=== PATIENT | male | born 2000 | race Caucasian/White ===

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

== ENCOUNTER 2021-01-29 02:24 | Emergency (ER) | payer OTHER ==
[~2021-01-29] VITALS: Ht 185.4 cm; Wt 68.0 kg
[2021-01-29 03:56] LABS: BASOPHILS ABSOLUTE AUTO 0.04 K/mm3 (0.00-0.23); BASOPHILS PERCENT AUTO 0 % (0-2); EOSINOPHILS PERCENT AUTO 0 % (0-6); Hematocrit 43.9 % (37.0-53.0); Hemoglobin 14.9 g/dL (13.5-17.5); IMMATURE GRAN ABSOLUTE AUTO 0.03 K/mm3 (0.00-0.10); IMMATURE GRAN PERCENT AUTO 0 % (0-1); LYMPHOCYTES ABSOLUTE AUTO 0.58 K/mm3 (0.84-5.20); LYMPHOCYTES PERCENT AUTO 5 % (21-46); MONOCYTES ABSOLUTE AUTO 0.82 K/mm3 (0.16-1.47); MONOCYTES PERCENT AUTO 7 % (4-13); Mean Corpuscular HGB 29.3 pg (26.0-34.0); Mean Corpuscular HGB Conc 33.9 g/dL (31.5-36.5); Mean Corpuscular Volume 86 fL (80-100); NEUTROPHILS ABSOLUTE AUTO 10.72 K/mm3 (1.96-9.15); NEUTROPHILS PERCENT AUTO 88 % (41-73); Platelet Count 206 K/mm3 (150-400); RDW Coefficient Variation 12.7 % (11.7-14.2); RDW Standard Deviation 39.9 fL (35.1-46.3); Red Blood Cell Count 5.08 M/mm3 (4.30-5.90); White Blood Cell Count 12.19 K/mm3 (4.00-11.30)
[2021-01-29 04:15] LABS: Alanine Aminotransfer (ALT/SGP 22 U/L (12-78); Albumin, Blood 4.4 g/dL (3.4-5.0); Albumin/Globulin Ratio 1.4 (0.8-1.8); Alk Phos 71 U/L (58-237); Anion Gap 8 mmol/L (6-16); Aspartate Aminotrans (AST/SGOT 21 U/L (12-37); Bilirubin, Total 0.7 mg/dL (0.1-1.0); Blood Urea Nitrogen 10 mg/dL (8-21); Bun/Creatinine Ratio 11.2 (12.0-20.0); CO2, Blood 25 mmol/L (21-32); Calcium, Blood 9.2 mg/dL (8.5-10.1); Chloride, Blood 105 mmol/L (98-108); Creatinine, Blood 0.89 mg/dL (0.60-1.20); Globulin, Blood 3.2 g/dL (2.2-4.0); Glomerular Filtration Rate >60 (60-); Glucose, Blood 110 mg/dL (70-99); Potassium, Blood 4.3 mmol/L (3.5-5.5); Sodium, Blood 138 mmol/L (136-145); Total Protein, Blood 7.6 g/dL (6.4-8.2)
== END 2021-01-29 06:57 | disposition home or self-care (01) ==
LOC: ER 02:24
PROVIDERS: Emergency Medicine
DX: S11.91XA Laceration without foreign body of unspecified part of neck, initial encounter (principal); S93.401A Sprain of unspecified ligament of right ankle, initial encounter; S16.1XXA Strain of muscle, fascia and tendon at neck level, initial encounter; V59.9XXA Occupant (driver) (passenger) of pick-up truck or van injured in unspecified traffic accident, initial encounter
CPT/HCPCS: 12004; 70450; 72125; 73590; 73610; 80053; 83690; 85025; 90471; 90714; 96374; 99284-25; A9270; J2405

== ENCOUNTER 2021-02-09 12:34 | Inpatient (IN) | payer OTHER ==
[~2021-02-09] VITALS: Ht 185.4 cm; Wt 65.4 kg
[2021-02-09 14:05] LABS: BASOPHILS ABSOLUTE AUTO 0.02 K/mm3 (0.00-0.23); BASOPHILS PERCENT AUTO 0 % (0-2); EOSINOPHILS ABSOLUTE AUTO 0.14 K/mm3 (0.00-0.68); EOSINOPHILS PERCENT AUTO 2 % (0-6); Hematocrit 40.4 % (37.0-53.0); Hemoglobin 13.4 g/dL (13.5-17.5); IMMATURE GRAN ABSOLUTE AUTO 0.02 K/mm3 (0.00-0.10); IMMATURE GRAN PERCENT AUTO 0 % (0-1); LYMPHOCYTES ABSOLUTE AUTO 1.28 K/mm3 (0.84-5.20); LYMPHOCYTES PERCENT AUTO 18 % (21-46); MONOCYTES PERCENT AUTO 7 % (4-13); Mean Corpuscular HGB 28.7 pg (26.0-34.0); Mean Corpuscular HGB Conc 33.2 g/dL (31.5-36.5); Mean Corpuscular Volume 87 fL (80-100); Mean Platelet Volume 9.8 fL (9.1-12.4); NEUTROPHILS ABSOLUTE AUTO 5.29 K/mm3 (1.96-9.15); NEUTROPHILS PERCENT AUTO 73 % (41-73); Platelet Count 309 K/mm3 (150-400); RDW Coefficient Variation 12.4 % (11.7-14.2); RDW Standard Deviation 39.5 fL (35.1-46.3); Red Blood Cell Count 4.67 M/mm3 (4.30-5.90); White Blood Cell Count 7.25 K/mm3 (4.00-11.30)
[2021-02-09 14:23] LABS: Alanine Aminotransfer (ALT/SGP 41 U/L (12-78); Albumin, Blood 3.5 g/dL (3.4-5.0); Albumin/Globulin Ratio 0.9 (0.8-1.8); Alk Phos 66 U/L (58-237); Anion Gap 9 mmol/L (6-16); Aspartate Aminotrans (AST/SGOT 30 U/L (12-37); Bilirubin, Total 0.8 mg/dL (0.1-1.0); Blood Urea Nitrogen 20 mg/dL (8-21); Bun/Creatinine Ratio 23.9 (12.0-20.0); CO2, Blood 26 mmol/L (21-32); Calcium, Blood 8.8 mg/dL (8.5-10.1); Chloride, Blood 103 mmol/L (98-108); Creatinine, Blood 0.84 mg/dL (0.60-1.20); Globulin, Blood 4.1 g/dL (2.2-4.0); Glomerular Filtration Rate >60 (60-); Glucose, Blood 79 mg/dL (70-99); Potassium, Blood 4.7 mmol/L (3.5-5.5); Sodium, Blood 138 mmol/L (136-145); Total Protein, Blood 7.6 g/dL (6.4-8.2)
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
[2021-02-09 19:30] LABS: Influenza A, PCR NEGATIVE (NEGATIVE); Influenza B, PCR NEGATIVE (NEGATIVE); Resp Syncytial Virus, PCR NEGATIVE (NEGATIVE); SARS-Cov-2 (COVID-19) PCR, MMC NEGATIVE (NEGATIVE)
[2021-02-09] MEDS ORDERED: CEPH500 PO (19:41)
[2021-02-09] MEDS ORDERED: CYCL10 PO (19:42)
[2021-02-09] MEDS ORDERED: OXYCODONE-ACET1 EAC3 PO (19:44)
--- NOTE | 2021-02-10 04:07 | NUR ---
PT quiet without complaints. NPO for possible I & D RT LE >pt DENIES ACUTE PAIN. IV abx given. Dressing rt le reinforced for serosang draining mod amt .PT void x 1 BM on presentation from ER. CO recent wt loss anorexia with decreased oral intake. Had low BP 88/55 rechecked after repositioned & smaller BP cuff.SBP greater than 100. Will notify MD ask for IVF while NPO.
--- NOTE | 2021-02-10 04:54 | NUR ---
DR BRIONES updated on NPO status and hypotension. 500 ml ns bolus & 1 l NS at 150 hr while NPO.
[2021-02-10 05:14] LABS: BASOPHILS ABSOLUTE AUTO 0.02 K/mm3 (0.00-0.23); BASOPHILS PERCENT AUTO 0 % (0-2); EOSINOPHILS ABSOLUTE AUTO 0.23 K/mm3 (0.00-0.68); EOSINOPHILS PERCENT AUTO 5 % (0-6); Hematocrit 34.1 % (37.0-53.0); Hemoglobin 11.7 g/dL (13.5-17.5); IMMATURE GRAN ABSOLUTE AUTO 0.03 K/mm3 (0.00-0.10); IMMATURE GRAN PERCENT AUTO 1 % (0-1); LYMPHOCYTES PERCENT AUTO 28 % (21-46); MONOCYTES ABSOLUTE AUTO 0.46 K/mm3 (0.16-1.47); MONOCYTES PERCENT AUTO 9 % (4-13); Mean Corpuscular HGB 29.4 pg (26.0-34.0); Mean Corpuscular HGB Conc 34.3 g/dL (31.5-36.5); Mean Corpuscular Volume 86 fL (80-100); Mean Platelet Volume 10.1 fL (9.1-12.4); NEUTROPHILS ABSOLUTE AUTO 2.84 K/mm3 (1.96-9.15); NEUTROPHILS PERCENT AUTO 57 % (41-73); Platelet Count 280 K/mm3 (150-400); RDW Coefficient Variation 12.3 % (11.7-14.2); RDW Standard Deviation 38.9 fL (35.1-46.3); Red Blood Cell Count 3.98 M/mm3 (4.30-5.90); White Blood Cell Count 4.98 K/mm3 (4.00-11.30)
[2021-02-10 05:31] LABS: International Normalized Ratio 1.04; Prothrombin Time Results 10.9 Sec (9.7-11.5)
[2021-02-10 05:56] LABS: Anion Gap 9 mmol/L (6-16); Blood Urea Nitrogen 21 mg/dL (8-21); Bun/Creatinine Ratio 24.7 (12.0-20.0); CO2, Blood 27 mmol/L (21-32); Calcium, Blood 8.6 mg/dL (8.5-10.1); Chloride, Blood 104 mmol/L (98-108); Creatinine, Blood 0.85 mg/dL (0.60-1.20); Glomerular Filtration Rate >60 (60-); Glucose, Blood 81 mg/dL (70-99); Potassium, Blood 4.3 mmol/L (3.5-5.5); Sodium, Blood 140 mmol/L (136-145)
--- NOTE | 2021-02-10 06:02 | NUR ---
PT declined flu vaccine said he is considering it later in stay.IV fluid bolus completed, NPO has 1 l ns running at 150 ml hr.
--- NOTE | 2021-02-10 09:11 | NUR ---
I went up to visit the patient in his [facility] room 304. Patient was alert and very pleasant. Pt lives at home with his parents, Son ([phone]) and Cammy . Pt said he expected his mom to be in to visit him today. Dr. Garcia anticipates the patient being in the hospital for the next day or two due to the infection in his leg. Pt states he does drive, but his parents will help until he heals. Pt also states he already has crutches at home and does not anticipate any further needs. He also does not have a preference on home health agencies and has never receive home health services before.
--- NOTE | 2021-02-10 18:11 | NUR ---
SHIFT SUMMARY; PATIENT HAS PLEASANT AFFECT DURING DAY. REMAINS ON BEDREST. VERY PAINFULL TO PUT ANY WEIGHT ON RIGHT FOOT. FLUIDS WERE STOPPED BY MD TODAY. CAME TO ROOM SHE REMOVED DRESSING FROM RIGHT LEG EXAMINED PATIENT'S WOUND AND THEN REDRESSED IT. PATIENT IS TO BE NPO AFTER MIDNIGHT AND SHE MAY TAKE HIM TO SURGERY IN THE AM. PATIENT RECEIVED ONE TABLET OF HYDROCODONE FOR PAIN TODAY. HE SAID IT HAD MINIMAL EFFECT HOWEVER IS ASKING FOR ANOTHER AT SHIFT CHANGE. PARENTS CAME TO VISIT AND WANT TO BE CALLED IN AM IF PATIENT IS GOING TO SURGERY SO THEY CAN BE THERE WAITING WHEN HE GETS OUT. WILL PASS ON TO NOC SHIFT RN IN CASE PAITENT TAKEN PRIOR TO SHIFT CHANGE IN THE AM. DARVIN BUTLER RN
--- NOTE | 2021-02-11 05:23 | NUR ---
SHIFT SUMMARY NO ACUTE CHANGES TO REPORT THIS SHIFT. PT DENIES PAIN T/O SHIFT, AND REPORTS THAT HE IS FEELING GOOD. IV ANTIBIOTICS CONTINUED PER ORDERS. DRESSING TO RLE C/D/I, AND CHANGED BY MD YESTERDAY. PLAN IS FOR I&D TODAY. PT NPO, AND CONFIRMS NPO STATUS SINCE MIDNIGHT. PT INDEPENDENT IN THE ROOM, MAKES NEEDS KNOWN. BED IN LOWEST POSITION, CALL LIGHT WITHIN REACH.
[2021-02-11 05:25] LABS: BASOPHILS ABSOLUTE AUTO 0.02 K/mm3 (0.00-0.23); BASOPHILS PERCENT AUTO 0 % (0-2); EOSINOPHILS ABSOLUTE AUTO 0.25 K/mm3 (0.00-0.68); EOSINOPHILS PERCENT AUTO 4 % (0-6); Hematocrit 34.4 % (37.0-53.0); Hemoglobin 11.6 g/dL (13.5-17.5); IMMATURE GRAN ABSOLUTE AUTO 0.03 K/mm3 (0.00-0.10); IMMATURE GRAN PERCENT AUTO 1 % (0-1); LYMPHOCYTES ABSOLUTE AUTO 1.19 K/mm3 (0.84-5.20); LYMPHOCYTES PERCENT AUTO 21 % (21-46); MONOCYTES ABSOLUTE AUTO 0.53 K/mm3 (0.16-1.47); MONOCYTES PERCENT AUTO 9 % (4-13); Mean Corpuscular HGB 28.9 pg (26.0-34.0); Mean Corpuscular HGB Conc 33.7 g/dL (31.5-36.5); Mean Corpuscular Volume 86 fL (80-100); Mean Platelet Volume 9.7 fL (9.1-12.4); NEUTROPHILS ABSOLUTE AUTO 3.72 K/mm3 (1.96-9.15); NEUTROPHILS PERCENT AUTO 65 % (41-73); Platelet Count 326 K/mm3 (150-400); RDW Coefficient Variation 12.3 % (11.7-14.2); RDW Standard Deviation 39.1 fL (35.1-46.3); Red Blood Cell Count 4.01 M/mm3 (4.30-5.90); White Blood Cell Count 5.74 K/mm3 (4.00-11.30)
[2021-02-11 06:39] LABS: Anion Gap 7 mmol/L (6-16); Blood Urea Nitrogen 15 mg/dL (8-21); Bun/Creatinine Ratio 19.4 (12.0-20.0); CO2, Blood 26 mmol/L (21-32); Calcium, Blood 8.5 mg/dL (8.5-10.1); Chloride, Blood 108 mmol/L (98-108); Creatinine, Blood 0.78 mg/dL (0.60-1.20); Glomerular Filtration Rate >60 (60-); Glucose, Blood 94 mg/dL (70-99); Potassium, Blood 4.7 mmol/L (3.5-5.5); Sodium, Blood 141 mmol/L (136-145)
--- NOTE | 2021-02-12 04:16 | NUR ---
SHIFT SUMMARY ADMITTED FOR CELLULITIS OF RLE. FULL CODE. PLAN IS FOR I&D OF RLE WOUND TODAY. PT HAS BEEN NPO SINCE [address] CHEN IS ORTHO CONSULT. THERE IS ALSO A LACERATION TO BACK OF HIS NECK WELL. IV ANTIB RX ARE SCHEDULED. HE IS A&O X4, INDEPENDENT IN ROOM. HE DENIED NEED FOR PAIN MEDS. I HAVE NO NEW CONCERNS THIS SHIFT.
--- NOTE | 2021-02-12 11:26 | NUR ---
SPOKE TO DR. PLUMMER IN PERSON, WHO STATED THAT THIS PT WILL NOT BE HAVING SURGERY TODAY AND, FROM HIS PERSPECTIVE, CAN GO HOME ON OUTPT ABX WITH OFFICE F/U IN ONE WEEK. CALLED DR. LATHAM, REPORTED THIS TO PROVIDER.
[2021-02-12] MEDS ORDERED: ACET325 PO (13:31)
[2021-02-12] MEDS ORDERED: AMOX-CLAV 875-1 EAC5 PO (13:32)
--- NOTE | 2021-02-12 13:58 | NUR ---
PATIENT DISCHARGED TO HOME, ACCOMPANIED BY HIS MOM. IV SALINE LOCK REMOVED WITHOUT INCIDENT. VERBALIZED UNDERSTANDING OF D/C INSTRUCTIONS AND WOUND CARE. GIVEN WOUND CARE SUPPLIES THAT WERE IN ROOM (WOUND CLEANSER, 4X4 GAUZE, EXUDRY, KERLIX, PHUONG WRAP), SHOULD BE ENOUGH FOR 1 WEEK. OFF UNIT VIA W/C AT 1359. NO BELONGINGS LEFT BEHIND IN ROOM.
== END 2021-02-12 13:55 | disposition home or self-care (01) | DRG 603 ==
LOC: ER 12:34 → MEDS 17:54
PROVIDERS: Emergency Medicine; Family Medicine; Physician Assistant; ADMIT Internal Medicine
DX: L03.115 Cellulitis of right lower limb (principal); S93.401A Sprain of unspecified ligament of right ankle, initial encounter; Z20.822 Contact with and (suspected) exposure to COVID-19; V89.2XXA Person injured in unspecified motor-vehicle accident, traffic, initial encounter
CPT/HCPCS: 0241U; 36415; 73590; 73701; 80048; 80053; 85025; 85610; 86140; 96365-59; 99285-25; A9270; J0690; J7030; J7040; Q9967

== ENCOUNTER 2021-02-21 09:56 | Day surgery (SDC) | payer OTHER ==
[~2021-02-21 09:56] MED LIST changes: +ACET325 PO; +AMOX-CLAV 875-1 EAC5 PO; +CEPH500 PO; +CYCL10 PO; +OXYCODONE-ACET1 EAC3 PO
== END 2021-02-21 22:42 | disposition home or self-care (01) ==
LOC: WOUND 09:56
DX: S89.91XA Unspecified injury of right lower leg, initial encounter (principal); V89.2XXA Person injured in unspecified motor-vehicle accident, traffic, initial encounter; L97.812 Non-pressure chronic ulcer of other part of right lower leg with fat layer exposed; F17.210 Nicotine dependence, cigarettes, uncomplicated
CPT/HCPCS: A9270; G0463

== ENCOUNTER 2021-02-28 03:39 | Day surgery (SDC) | payer OTHER | END 2021-02-28 23:48 | disposition home or self-care (01) | LOC: WOUND 03:39 | DX: L97.812 Non-pressure chronic ulcer of other part of right lower leg with fat layer exposed (principal); S89.91XA Unspecified injury of right lower leg, initial encounter; V89.2XXA Person injured in unspecified motor-vehicle accident, traffic, initial encounter | CPT/HCPCS: G0463 ==

== ENCOUNTER 2021-03-07 00:51 | Day surgery (SDC) | payer OTHER | END 2021-03-07 23:19 | disposition home or self-care (01) | LOC: WOUND 00:51 | DX: S89.91XA Unspecified injury of right lower leg, initial encounter (principal); V89.2XXA Person injured in unspecified motor-vehicle accident, traffic, initial encounter; L97.812 Non-pressure chronic ulcer of other part of right lower leg with fat layer exposed | CPT/HCPCS: A9270 ==

== ENCOUNTER 2021-03-21 02:56 | Day surgery (SDC) | payer OTHER | END 2021-03-21 22:40 | disposition home or self-care (01) | LOC: WOUND 02:56 | DX: L97.815 Non-pressure chronic ulcer of other part of right lower leg with muscle involvement without evidence of necrosis (principal); S81.801A Unspecified open wound, right lower leg, initial encounter; V89.2XXA Person injured in unspecified motor-vehicle accident, traffic, initial encounter | CPT/HCPCS: A9270; G0463 ==

== ENCOUNTER 2021-03-28 03:18 | Day surgery (SDC) | payer OTHER | END 2021-03-28 23:29 | disposition home or self-care (01) | LOC: WOUND 03:18 | DX: L97.812 Non-pressure chronic ulcer of other part of right lower leg with fat layer exposed (principal); S81.801A Unspecified open wound, right lower leg, initial encounter; V59.9XXA Occupant (driver) (passenger) of pick-up truck or van injured in unspecified traffic accident, initial encounter | CPT/HCPCS: A9270; G0463 ==

== ENCOUNTER 2021-04-04 02:45 | Day surgery (SDC) | payer OTHER | END 2021-04-04 23:32 | disposition home or self-care (01) | LOC: WOUND 02:45 | DX: L97.812 Non-pressure chronic ulcer of other part of right lower leg with fat layer exposed (principal); S89.91XA Unspecified injury of right lower leg, initial encounter; V89.2XXA Person injured in unspecified motor-vehicle accident, traffic, initial encounter | CPT/HCPCS: A9270; G0463 ==

== ENCOUNTER 2021-04-18 01:55 | Day surgery (SDC) | payer OTHER | END 2021-04-18 23:15 | disposition home or self-care (01) | LOC: WOUND 01:55 | DX: S81.801A Unspecified open wound, right lower leg, initial encounter (principal); L97.812 Non-pressure chronic ulcer of other part of right lower leg with fat layer exposed; S89.91XA Unspecified injury of right lower leg, initial encounter; V89.2XXA Person injured in unspecified motor-vehicle accident, traffic, initial encounter | CPT/HCPCS: G0463 ==